=== PATIENT | male | born 2000 | race Two or more races ===

== ENCOUNTER 2023-08-25 11:46 | Emergency (ER) | payer MEDICAID, OTHER ==
[~2023-08-25] VITALS: Ht 170.2 cm; Wt 62.0 kg
[2023-08-25 13:58] LABS: Rapid Influenza A Negative (Negative); Rapid Influenza B Negative (Negative)
[2023-08-25 13:59] LABS: COVID19 ANTIGEN SOFIA FIA NEGATIVE (NEGATIVE)
[2023-08-25 14:31] VITALS: PULSE 118; RESP 18; O2SAT 98
[2023-08-25] MEDS ORDERED: IBUPROFEN 600 MG TAB PO ONE (14:45)
[2023-08-25] MEDS ORDERED: PROM1SOL4 PO (14:52)
[2023-08-25] MEDS ORDERED: ACET500T58 PO (14:52)
[2023-08-25] MEDS ORDERED: IBUP1TAB5 PO (14:52)
[2023-08-25] MEDS ORDERED: AZIT-81 PO (14:55)
[2023-08-25 15:52] VITALS: BP 131/81; PULSE 110; RESP 18; TEMP 99; O2SAT 98
== END 2023-08-25 15:52 | disposition home or self-care (01) ==
LOC: ER 11:46
DX: B34.9 Viral infection, unspecified (principal); Z79.899 Other long term (current) drug therapy; Z20.822 Contact with and (suspected) exposure to COVID-19
CPT/HCPCS: 36415; 71045; 87426; 87804